=== PATIENT | female | born 1985 | race Caucasian/White ===

== ENCOUNTER 2017-10-29 15:28 | Emergency (ER) | payer MEDICAID, OTHER ==
[2017-10-29] MEDS: METOCLOPRAMIDE 10 MG INJ IV (17:20)
[2017-10-29] MEDS: SOD CHLORIDE 0.9% 1,000 ML IV (17:20)
[2017-10-29] MEDS: DIPHENHYDRAMINE 50 MG INJ IV (17:21)
[2017-10-29 17:26] LABS: ADD MAN DIFF? NO
[2017-10-29] MEDS: KETOROLAC 30 MG INJ IV (17:29)
[2017-10-29 17:32] LABS: BASOPHILS % 0.5 % (0.0-2.0); EOSINOPHILS # 0.1 10^3/ul (0.0-0.5); EOSINOPHILS % 2.4 % (0.0-7.0); HEMATOCRIT 41.3 % (37.0-47.0); LYMPHOCYTES # 2.4 10^3/ul (0.8-2.9); LYMPHOCYTES % 40.3 % (15.0-51.0); MEAN CORPUSCULAR HGB CONC 33.9 g/dl (32.0-37.0); MEAN CORPUSCULAR VOLUME 91.6 fl (82.0-101.0); MEAN PLATELET VOLUME 10.7 fl (7.4-10.4); MONOCYTE # 0.5 10^3/ul (0.3-0.9); MONOCYTES % 8.1 % (0.0-11.0); NEUTROPHIL # 2.8 10^3/ul (1.6-7.5); NEUTROPHILS % 48.5 % (39.0-77.0); PLATELET COUNT 206 10^3/UL (140-415); RED BLOOD COUNT 4.51 10^6/ul (4.20-5.40); RED CELL DISTRIBUTION WIDTH 12.4 % (11.5-14.5)
[2017-10-29 17:32] LABS: WHITE BLOOD COUNT 5.8 10^3/ul (4.8-10.8)
[2017-10-29 17:49] LABS: ANION GAP 17 (8-16); BLOOD UREA NITROGEN 9 mg/dl (7-20); CALCIUM 9.6 mg/dl (8.4-10.2); CARBON DIOXIDE 25 mmol/L (21-31); CHLORIDE 105 mmol/L (97-110); CREATININE 0.56 mg/dl (0.44-1.00); GLUCOSE 79 mg/dl (70-220); POTASSIUM 3.6 mmol/L (3.5-5.1); SODIUM 143 mmol/L (135-144)
[2017-10-29 17:55] LABS: INR 1.07; PT RATIO 1.1
[2017-10-29 17:56] LABS: PARTIAL THROMBOPLASTIN TIME 38.1 Sec (25.0-35.0)
== END 2017-10-29 18:55 | disposition home or self-care (01) ==
LOC: FTE 15:28
DX: R51 Headache (principal)
CPT/HCPCS: 36415; 80048; 81025; 85025; 85610; 85730; 96374; 96375; 99284-25

== ENCOUNTER 2018-08-24 00:35 | Emergency (ER) | payer OTHER, MEDICAID ==
[2018-08-24] MEDS ORDERED: DIPHENHYDRAMINE 50 MG INJ IV (03:54)
[2018-08-24] MEDS ORDERED: METOCLOPRAMIDE 10 MG INJ IV (03:54)
[2018-08-24] MEDS: PROCHLORPERAZINE 10 MG INJ IV (04:28)
[2018-08-24] MEDS: KETOROLAC 15 MG INJ IV (04:28)
[2018-08-24] MEDS: ONDANSETRON 4 MG INJ IV (04:28)
[2018-08-24] MEDS: SOD CHLORIDE 0.9% 1,000 ML IV (04:29)
== END 2018-08-24 05:22 | disposition home or self-care (01) ==
LOC: FTE 00:35
DX: R51 Headache (principal); R11.0 Nausea
CPT/HCPCS: 81025; 96374; 96375; 99284-25